=== PATIENT | male | born 1980 | race American Indian/Alaskan Native ===

== ENCOUNTER 2022-11-14 12:28 | Emergency (ER) | payer MEDICAID, OTHER, SELFPAY ==
[2022-11-14] VITALS (36 sets, daily range): BP systolic 182–230; BP diastolic 87–149; PULSE 80–160; RESP 15–34; TEMP 36.7; O2SAT 92–97; BMI 35.2
--- NOTE | 2022-11-14 12:36 | DI.RAD.S_ITS ---
PROCEDURE: XR CHEST 1V INDICATIONS: chest pain TECHNIQUE: One view of the chest was acquired. COMPARISON: None. FINDINGS: Surgical changes and devices: None. Lungs and pleura: Lungs are clear. No pleural effusions or pneumothorax. Mediastinum: Mediastinal contours appear normal. Heart size is normal. Bones and chest wall: No suspicious bony lesions. Overlying soft tissues appear unremarkable. IMPRESSION: No acute process. Dictated by: Jacy Bo M.D. on 11/14/2022 at 13:29 Approved by: Jacy Bo M.D. on 11/14/2022 at 13:29
[2022-11-14 12:44] LABS: Add Manual Diff / Slide Review NO; Basophils Absolute Auto 100 /uL (0-100); Basophils Percent Auto 1.2 % (0-2); Eosinophils Absolute Auto 300 /uL (0-450); Hematocrit 48.3 % (41-53); Hemoglobin 16.6 g/dL (13.5-17.5); Lymphocytes Absolute Auto 2800 /uL (1100-4500); Lymphocytes Percent Auto 28.1 % (25-40); Mean Corpuscular HGB Conc 34.4 % (30-36); Mean Corpuscular Hemoglobin 28.8 PG (26-34); Mean Corpuscular Volume 83.6 fL (80-100); Monocytes Absolute Auto 600 /uL (0-900); Monocytes Percent Auto 6.1 % (3-14); Neutrophils Absolute Auto 6300 /uL (1500-7000); Neutrophils Percent Auto 61.6 % (50-75); Platelet Count 239 X10^3/uL (150-400); Red Blood Cell Count 5.78 X10^6/uL (4.5-5.9); Red Cell Distribution Width 13.9 % (11.6-14.8); White Blood Cell Count 10.1 X10^3/uL (4.5-11.0)
--- NOTE | 2022-11-14 12:45 | ED_ITS ---
HPI - General Adult General Chief complaint: Hypertension Stated complaint: Allergic Reaction, BP 227/138 Time Seen by Provider: 11/14/22 12:31 History of Present Illness HPI narrative: Patient is a 41-year-old male history of hypertension CVA with right-sided weakness, presenting today with what he thinks is an allergic reaction. He says yesterday he had Michele smoothie and after his very smoothly he is had some difficulty swallowing and feels like his tongue is swollen. He has no throat closing no chest pain no shortness of breath no numbness tingling or weakness. No rash no numbness tingling or weakness no blurry vision no loss of vision. He is never had an allergic reaction before. He is supposed to be taking medication for blood pressure including lisinopril however he just stopped taking all of his medication about 1 year ago. Noted to be extremely hypertensive. Related Data Previous Rx's Medication Instructions Recorded amlodipine 10 mg tablet 10 mg PO DAILY #30 tabs 11/14/22 Allergies Allergy/AdvReac Type Severity Reaction Status Date / Time No Known Drug Allergies Allergy Verified 11/14/22 12:36 Review of Systems Review of Systems ROS Unobtainable: All systems reviewed & are unremarkable except as noted in HPI and below Exam Initial Vital Signs Initial Vital Signs: Vital Signs Temperature 98.1 F 11/14/22 12:32 Pulse Rate 101 H 11/14/22 12:32 Respiratory Rate 18 11/14/22 12:32 Blood Pressure 220/142 H 11/14/22 12:32 Pulse Oximetry 97 11/14/22 12:32 Oxygen Delivery Method 11/14/22 12:32 GENERAL: Alert pleasant 41-year-old male and in no acute distress. HEENT: Head atraumatic,EOMI, pupils reactive, face symmetric, moist mucous membranes PHARYNX: No significant tongue swelling lip swelling no uvula swelling or deviation no stridor CARDIOVASCULAR: Regular rate and rhythm without murmurs, rubs or gallops. RESPIRATORY: Breath sounds equal bilaterally, no wheezes rales or rhonchi. ABDOMEN: Soft, nontender. Normoactive bowel sounds all 4 quadrants. No guarding or rebound. EXTREMITIES: Normal range of motion, no clubbing or edema. Neurovascularly intact NEUROLOGICAL: Alert and oriented x4.Normal gait and speech. Cranial nerves II through XII grossly intact. SKIN: Warm, dry, no laceration, no petechiae, no rashes or lesions. No urticaria or rash Course Orders Ordered: ED Orders 11/14/22 12:30 Complete Blood Count AUTO DIFF Stat Comprehensive Metabolic Panel Stat Lipase Stat Magnesium Stat Partial Thromboplastin Time Stat Prothrombin Time INR Stat Troponin & CK Cardiac Panel Stat 11/14/22 12:36 XR chest 1V Stat 11/14/22 12:44 EKG-12 Lead Stat 11/14/22 12:45 COVID19 -Nasal RAPID/Pre-Proc Stat 11/14/22 14:25 Trop I [Troponin I] Stat 11/14/22 15:26 EKG-12 Lead Routine 11/14/22 17:08 Urine Microscopic Stat Discontinued Medications Amlodipine Besylate (Amlodipine 5 Mg Tablet) 10 mg PO NOW ONE Stop: 11/14/22 17:02 Last Admin: 11/14/22 17:08 Dose: 10 mg Documented By: REID Aspirin (Aspirin 81 Mg Chew Tab) 324 mg PO NOW ONE Stop: 11/14/22 12:37 Last Admin: 11/14/22 12:53 Dose: 324 mg Documented By: REID Cyclobenzaprine HCl (Cyclobenzaprine 10 Mg Tablet) 10 mg PO NOW ONE Stop: 11/14/22 16:19 Last Admin: 11/14/22 16:27 Dose: 10 mg Documented By: REID Diphenhydramine HCl (Diphenhydramine 50 Mg/Ml Vial) 25 mg IV NOW ONE Stop: 11/14/22 14:15 Last Admin: 11/14/22 14:32 Dose: 25 mg Documented By: REID Famotidine (Famotidine 20 Mg/2 Ml Vial) 20 mg IV NOW SARAH Last Admin: 11/14/22 14:30 Dose: 20 mg Documented By: REID Lisinopril (Lisinopril 20 Mg Tablet) 20 mg PO NOW ONE Stop: 11/14/22 16:19 Last Admin: 11/14/22 16:27 Dose: 20 mg Documented By: RLS Methylprednisolone (Methylprednisolone 125 Mg/2 Ml Vial) 125 mg IV NOW ONE Stop: 11/14/22 12:42 Last Admin: 11/14/22 12:54 Dose: 125 mg Documented By: RLS Morphine Sulfate (Morphine 2 Mg/Ml Inj) 2 mg IV NOW ONE Stop: 11/14/22 15:28 Last Admin: 11/14/22 15:32 Dose: 2 mg Documented By: RLS Vital Signs Vital signs: Vital Signs - 8 hr 11/14/22 12:32 11/14/22 13:00 11/14/22 12:33 Temperature 98.1 F Pulse Rate 101 H 92 H 105 H Respiratory Rate 18 20 20 Blood Pressure 220/142 H 194/118 H Pulse Oximetry 97 94 95 Oxygen Delivery Method Room Air Room Air Oxygen Flow Rate 11/14/22 12:34 11/14/22 12:34 11/14/22 12:37 Temperature Pulse Rate 105 H 104 H Respiratory Rate 15 Blood Pressure 220/142 H Pulse Oximetry 96 96 Oxygen Delivery Method Oxygen Flow Rate 11/14/22 12:37 11/14/22 12:40 11/14/22 12:40 Temperature Pulse Rate 96 H Respiratory Rate 25 H Blood Pressure 230/143 H 226/134 H Pulse Oximetry Oxygen Delivery Method Oxygen Flow Rate 11/14/22 12:42 11/14/22 12:42 11/14/22 12:45 Temperature Pulse Rate 101 H 100 H Respiratory Rate 20 28 H Blood Pressure 197/127 H Pulse Oximetry 95 94 Oxygen Delivery Method Room Air Oxygen Flow Rate 11/14/22 13:00 11/14/22 13:01 11/14/22 13:01 Temperature Pulse Rate 100 H 96 H Respiratory Rate 21 15 Blood Pressure 194/118 H Pulse Oximetry 95 94 Oxygen Delivery Method Oxygen Flow Rate 11/14/22 13:15 11/14/22 13:30 11/14/22 13:31 Temperature Pulse Rate 100 H 96 H 106 H Respiratory Rate 18 21 19 Blood Pressure Pulse Oximetry 95 95 94 Oxygen Delivery Method Oxygen Flow Rate 11/14/22 13:31 11/14/22 13:45 11/14/22 14:00 Temperature Pulse Rate 114 H 101 H Respiratory Rate 20 Blood Pressure 196/149 H Pulse Oximetry 97 96 Oxygen Delivery Method Oxygen Flow Rate 11/14/22 14:01 11/14/22 14:01 11/14/22 14:15 Temperature Pulse Rate 101 H 96 H Respiratory Rate 19 18 Blood Pressure 191/131 H Pulse Oximetry 95 95 Oxygen Delivery Method Oxygen Flow Rate 11/14/22 14:30 11/14/22 14:31 11/14/22 14:31 Temperature Pulse Rate 88 89 Respiratory Rate 24 17 Blood Pressure 192/112 H Pulse Oximetry 94 93 94 Oxygen Delivery Method Nasal Cannula Oxygen Flow Rate 2 11/14/22 14:45 11/14/22 15:00 11/14/22 15:01 Temperature Pulse Rate 91 H 103 H 92 H Respiratory Rate 23 29 H Blood Pressure Pulse Oximetry 93 96 94 Oxygen Delivery Method Oxygen Flow Rate 11/14/22 15:01 11/14/22 15:15 11/14/22 15:24 Temperature Pulse Rate 80 152 H Respiratory Rate 22 34 H Blood Pressure 203/126 H Pulse Oximetry 95 92 Oxygen Delivery Method Oxygen Flow Rate 11/14/22 15:24 11/14/22 15:30 11/14/22 16:27 Temperature Pulse Rate 160 H 116 H 129 H Respiratory Rate 28 H Blood Pressure 213/140 H 211/108 H Pulse Oximetry 93 Oxygen Delivery Method Oxygen Flow Rate 11/14/22 15:31 11/14/22 15:31 11/14/22 15:45 Temperature Pulse Rate 118 H 97 H Respiratory Rate 26 H 22 Blood Pressure 196/118 H Pulse Oximetry 97 Oxygen Delivery Method Oxygen Flow Rate 11/14/22 16:00 11/14/22 16:01 11/14/22 16:01 Temperature Pulse Rate 106 H 114 H Respiratory Rate 25 H 21 Blood Pressure 211/108 H Pulse Oximetry 97 97 Oxygen Delivery Method Oxygen Flow Rate 11/14/22 16:15 11/14/22 16:30 11/14/22 16:31 Temperature Pulse Rate 126 H 123 H 121 H Respiratory Rate 27 H 22 23 Blood Pressure Pulse Oximetry 96 96 95 Oxygen Delivery Method Nasal Cannula Room Air Oxygen Flow Rate 2 11/14/22 16:31 11/14/22 16:45 11/14/22 17:00 Temperature Pulse Rate 128 H 121 H Respiratory Rate 20 17 Blood Pressure 188/110 H Pulse Oximetry 96 95 Oxygen Delivery Method Oxygen Flow Rate 11/14/22 17:01 11/14/22 17:01 11/14/22 17:15 Temperature Pulse Rate 117 H 117 H Respiratory Rate 20 20 Blood Pressure 182/87 H Pulse Oximetry 95 96 Oxygen Delivery Method Oxygen Flow Rate Medical Decision Making Lab Data 11/14/22 12:30 11/14/22 12:30 Labs: Lab Results 11/14/22 11/14/22 11/14/22 Range/Units 12:30 12:30 12:30 WBC 10.1 (4.5-11.0) X10^3/uL RBC 5.78 (4.5-5.9) X10^6/uL Hgb 16.6 (13.5-17.5) g/dL Hct 48.3 (41-53) % MCV 83.6 (80-100) fL MCH 28.8 (26-34) PG MCHC 34.4 (30-36) % RDW 13.9 (11.6-14.8) % Plt Count 239 (150-400) X10^3/uL Neut % (Auto) 61.6 (50-75) % Lymph % (Auto) 28.1 (25-40) % [place] % (Auto) 6.1 (3-14) % Eos % (Auto) 3.0 (2-4) % Baso % (Auto) 1.2 (0-2) % Neut # (Auto) 6300 (3287-1598) /uL Lymph # (Auto) 2800 (9207-8271) /uL [place] # (Auto) 600 (0-900) /uL Eos # (Auto) 300 (0-450) /uL Baso # (Auto) 100 (0-100) /uL PT 12.6 (10.1-12.7) SECONDS INR 1.1 (0.9-1.3) APTT 39 H (26-36) SECONDS Sodium 140 (137-145) mmol/L Potassium 3.3 L (3.4-5.1) mmol/L Chloride 101 (98-107) mmol/L Carbon Dioxide 26 (22-32) mmol/L BUN 10 (9-20) mg/dL Creatinine 1.61 H (0.66-1.25) mg/dL Estimated GFR 54 L (>60) mL/min BUN/Creatinine Ratio 6.2 (6-22) Glucose 102 H (70-100) mg/dL Calcium 9.2 (8.4-10.2) mg/dL Magnesium 2.0 (1.6-2.3) mg/dL Total Bilirubin 0.7 (0.2-1.3) mg/dL AST 41 (17-59) IU/L ALT 30 (<50) IU/L Alkaline Phosphatase 127 H (38-126) U/L Total Creatine Kinase 324 H (55-170) U/L CK-MB (CK-2) 0.98 (<2.37) ng/mL CK-MB (CK-2) Rel Index 0.3 L (1.5-5.0) % Troponin I < 0.012 (0.01-0.034) ng/mL Total Protein 9.1 H (6.3-8.2) g/dL Albumin 4.8 (3.5-5.0) g/dL Globulin 4.3 H (1.7-4.1) g/dL Albumin/Globulin Ratio 1.1 (1.0-2.8) Lipase 191 (23-300) U/L Urine RBC (0-5/HPF) Urine WBC (0-5/HPF) Ur Squamous Epith Cells (0-5/HPF) Urine Bacteria (None) Ur Culture Indicated? SARS-CoV-2 (PCR) (Negative) 11/14/22 11/14/22 11/14/22 Range/Units 12:45 14:25 17:08 WBC (4.5-11.0) X10^3/uL RBC (4.5-5.9) X10^6/uL Hgb (13.5-17.5) g/dL Hct (41-53) % MCV (80-100) fL MCH (26-34) PG MCHC (30-36) % RDW (11.6-14.8) % Plt Count (150-400) X10^3/uL Neut % (Auto) (50-75) % Lymph % (Auto) (25-40) % [place] % (Auto) (3-14) % Eos % (Auto) (2-4) % Baso % (Auto) (0-2) % Neut # (Auto) (1203-9750) /uL Lymph # (Auto) (4171-4268) /uL [place] # (Auto) (0-900) /uL Eos # (Auto) (0-450) /uL Baso # (Auto) (0-100) /uL PT (10.1-12.7) SECONDS INR (0.9-1.3) APTT (26-36) SECONDS Sodium (137-145) mmol/L Potassium (3.4-5.1) mmol/L Chloride (98-107) mmol/L Carbon Dioxide (22-32) mmol/L BUN (9-20) mg/dL Creatinine (0.66-1.25) mg/dL Estimated GFR (>60) mL/min BUN/Creatinine Ratio (6-22) Glucose (70-100) mg/dL Calcium (8.4-10.2) mg/dL Magnesium (1.6-2.3) mg/dL Total Bilirubin (0.2-1.3) mg/dL AST (17-59) IU/L ALT (<50) IU/L Alkaline Phosphatase (38-126) U/L Total Creatine Kinase (55-170) U/L CK-MB (CK-2) (<2.37) ng/mL CK-MB (CK-2) Rel Index (1.5-5.0) % Troponin I < 0.012 (0.01-0.034) ng/mL Total Protein (6.3-8.2) g/dL Albumin (3.5-5.0) g/dL Globulin (1.7-4.1) g/dL Albumin/Globulin Ratio (1.0-2.8) Lipase (23-300) U/L Urine RBC None seen (0-5/HPF) Urine WBC None seen (0-5/HPF) Ur Squamous Epith Cells None seen (0-5/HPF) Urine Bacteria Occasional (0-1) (None) Ur Culture Indicated? Cult not indicated SARS-CoV-2 (PCR) Negative (Negative) Urine Dip Bedside Urine Glucose Negative Bedside Urine Bilirubin - Negative Bedside Urine Ketone - Negative Urine Specific [place] 1.010 Bedside Urine Occult Blood - Negative Bedside Urine pH 6.0 Bedside Urine Protein + 30 Bedside Urine Urobilinogen - Negative Bedside Urine Nitrite - Negative Bedside Urine Leukocytes - Negative Esterase Point of care testing: Urine Dip Bedside Urine Glucose Negative Bedside Urine Bilirubin - Negative Bedside Urine Ketone - Negative Urine Specific [place] 1.010 Bedside Urine Occult Blood - Negative Bedside Urine pH 6.0 Bedside Urine Protein + 30 Bedside Urine Urobilinogen - Negative Bedside Urine Nitrite - Negative Bedside Urine Leukocytes - Negative Esterase Imaging Data Chest x-ray: Radiologist's Impression: Signed Patient: Darshan Singh MR#: [id number] : 1980 Acct:[id number] Age/Sex: 41 / M Date of Service: 11/14/22 Loc: ED Accession Number: [id number] ?? Procedure: XR chest 1V Ordering Provider: Rosalia Prieto D.O. PROCEDURE:? XR CHEST 1V ? INDICATIONS:? chest pain ? TECHNIQUE:? One view of the chest was acquired.? ? COMPARISON:? None. ? FINDINGS:? ? Surgical changes and devices:? None.? ? Lungs and pleura:? Lungs are clear.? No pleural effusions or pneumothorax.? ? Mediastinum:? Mediastinal contours appear normal.? Heart size is normal.? ? Bones and chest wall:? No suspicious bony lesions.? Overlying soft tissues appear unremarkable.? ? IMPRESSION:? No acute process. ? ? Dictated by: Jacy Bo M.D. on 11/14/2022 at 13:29 ?? ECG Data Interpretation: Normal sinus rhythm rate 97 GA interval 170 QRS [address] changes no T- wave inversions no priors to compare EKG 2. SVT heart rate of 149 EKG 3. Sinus rhythm rate 143 MDM Narrative Medical decision making narrative: Patient 41-year-old male with known CVA right-sided weakness hypertension noncompliant with medications presenting today with throat discomfort and difficulty swallowing. Thighs having allergic reaction or irritation secondary to a very smoothly yesterday. He has no obvious signs of swelling he is no urticaria. Stridor. Symptoms actually did improve with allergic medications such as Solu-Medrol Benadryl and Pepcid. He is noted to be extremely hypertensive here in the emergency department with blood pressures greater than 200/100. He is no chest pain no headache no shortness of breath. He has mild elevation of creatinine at 1.6 with 2- troponins and no other sign of end-organ damage. He suddenly got a cramp in his left leg his heart rate increased to the 170s and noticed into SVT. Attempted carotid massage and bearing down he eventually did get himself out of SVT prior to any medications given. So mildly tachycardic afterwards still complaining of calf pain. I did consult briefly with Dr. Null hospitalist in regards to admission versus discharge home. The patient would like to go home. I discussed with him need for strict blood pressure control especially if he is already had a stroke. He is at significant risk for stroke and heart attack. He understands this. He was given morphine and cyclobenzaprine for his calf pain along with lisinopril and amlodipine. He reports that he was previously on lisinopril he is not sure what dose. Due to acute kidney injury will not discharge him home on lisinopril but will start him again on amlodipine. He reports that he does have a PCP whom he can see. He understands the risks and benefits of admission versus discharge. I believe that he is chronically elevated. Symptoms today of throat pain concern for acute coronary syndrome due to his significant elevated blood pressure however he has no EKG changes or positive troponins. And symptoms improved with allergic reaction medication. He has no sign of anaphylaxis or angioedema. Discharge Plan Departure Patient Disposition: Home Clinical Impression: Hypertension, Allergic reaction, Acute kidney injury Instructions: DI for High Blood Pressure, DI for General Allergic Reactions Activity Restrictions/Additional Instructions: *You have been diagnosed with high blood pressure, allergic reaction, kidney disease *What to do: You must get your blood pressure under control. It is noted to be extremely high here in the emergency department. I strongly recommend that he restart your medication and see or PCP. Please take your blood pressure once a day and monitor it closely. *Continue to take medications as directed Amlodipine 10 mg once daily--> SENT TO [facility] *Follow up with your primary care provider in 2-3 days or call [phone] *Return to ER if you should have increasing throat pain chest pain shortness of breath or any new, worsening or concerning symptoms Prescriptions: New amlodipine 10 mg tablet 10 mg PO DAILY Qty: 30 0RF Referrals: Miscellaneous,Doctor, [Primary Care Provider] - Stand Alone Forms: Patient Portal/API
[2022-11-14] MEDS: ASPIRIN 81 MG CHEW TAB 324 MG PO (12:53)
[2022-11-14] MEDS: methylPREDNISolone 125 MG/2 ML VIAL IV (12:54)
[2022-11-14 12:57] LABS: INR 1.1 (0.9-1.3); Prothrombin Time 12.6 SECONDS (10.1-12.7)
[2022-11-14 13:00] LABS: PTT Partial Thromboplastin Tim 39 SECONDS (26-36)
--- NOTE | 2022-11-14 13:00 | PC.NURSE ---
hx of a stroke . right sided deficits.
[2022-11-14 13:05] LABS: Alanine Aminotransferase 30 IU/L (<50); Albumin 4.8 g/dL (3.5-5.0); Albumin Globulin Ratio 1.1 (1.0-2.8); Alkaline Phosphatase 127 U/L (38-126); Aspartate Aminotransferase 41 IU/L (17-59); BUN Creatinine Ratio 6.2 (6-22); Bilirubin Total 0.7 mg/dL (0.2-1.3); Blood Urea Nitrogen 10 mg/dL (9-20); Calcium 9.2 mg/dL (8.4-10.2); Carbon Dioxide 26 mmol/L (22-32); Chloride 101 mmol/L (98-107); Creatine Kinase 324 U/L (55-170); Estimated Glomerular Filt Rate 54 mL/min (>60); Globulin 4.3 g/dL (1.7-4.1); Glucose 102 mg/dL (70-100); HEMOLYSIS < 15 (0-50); Lipase 191 U/L (23-300); Potassium 3.3 mmol/L (3.4-5.1); Sodium 140 mmol/L (137-145); Total Protein 9.1 g/dL (6.3-8.2)
[2022-11-14 13:08] LABS: COVID19 -Nasal RAPID Negative (Negative)
[2022-11-14 13:15] LABS: Troponin I < 0.012 ng/mL (0.01-0.034)
[2022-11-14 13:20] LABS: CKMB % Relative Index 0.3 % (1.5-5.0); Creatine Kinase MB 0.98 ng/mL (<2.37)
[2022-11-14] MEDS: FAMOTIDINE 20 MG/2 ML VIAL IV (14:30)
[2022-11-14] MEDS: diphenhydrAMINE 50 MG/ML VIAL 25 MG IV (14:32)
[2022-11-14 15:07] LABS: Troponin I < 0.012 ng/mL (0.01-0.034)
[2022-11-14] MEDS: MORPHINE 2 MG/ML INJ IV (15:32)
--- NOTE | 2022-11-14 15:37 | PC.NURSE ---
pt got a cramp in his left leg. went into SVT HR 150's. MD at bedside. pt converted to a ST. ekg x 2 done. morphine given to patient. reports his pain is better.
[2022-11-14] MEDS: lisinopriL 20 MG TABLET PO (16:27)
[2022-11-14] MEDS: CYCLOBENZAPRINE 10 MG TABLET PO (16:27)
[2022-11-14] MEDS: AMLODIPINE 5 MG TABLET 10 MG PO (17:08)
[2022-11-14 17:57] LABS: Bacteria Urine Occasional (0-1); Culture Indicated Urine Cult Not Indicated; RBC Urine None Seen (0-5/HPF); Squamous Epithelial Cell Urine None Seen (0-5/HPF); WBC Urine None Seen (0-5/HPF)
== END 2022-11-14 17:33 | disposition home or self-care (01) ==
PROVIDERS: Emergency Provider Emergency Medicine
DX: I10 Essential (primary) hypertension (principal); N17.9 Acute kidney failure, unspecified; T78.40XA Allergy, unspecified, initial encounter; R07.9 Chest pain, unspecified; Z20.822 Contact with and (suspected) exposure to COVID-19
CPT/HCPCS: 36415; 71045; 80053; 81003; 81015; 82550; 82553; 83690; 83735; 84484; 85025; 85610; 85730; 87635; 93005; 93010; 96374; 96375; 99285; C9803; J1200; J2270; J2930